=== PATIENT | male | born 1965 ===

== ENCOUNTER 2024-02-13 07:37 | Day surgery (SDC) | payer OTHER, SELFPAY ==
--- NOTE | 2024-02-13 | PATH_ITS ---
[facility] Accession Number: [id number] No. of containers..03 Tissue . 01 Material submitted: . PART A: stomach - STOMACH PART B: colon - RANDOM COLON BIOPSY PART C: colon - COLON, 60 CM, BIOPSY . 01 Clinical history: . A) R/O HP B) R/O COLITIS . 01 Diagnosis: Part A: STOMACH: Gastric mucosa with mild chronic inflammation. No Helicobacter organisms identified. No intestinal metaplasia, dysplasia, or malignancy identified. . Part B: RANDOM COLON BIOPSY: Colonic mucosa with no diagnostic alterations. No active inflammation, granulomas, dysplasia, or malignancy identified. No evidence of colitis. . Part C: COLON, 60 CM, BIOPSY: Hyperplastic polyp. [facility] 02/20/20241322 Local . 01 Electronically signed: . Giovani Powell MD, Pathologist NPI- [id number] . 01 Gross description: . A. Received in formalin with two patient identifiers and stomach, are two rojo soft tissue fragments, 0.4 x 0.2 cm in greatest dimension. Submitted entirely in A1. . B. Received in formalin with two patient identifiers and random colon, are three rojo soft tissue fragments, 0.4 to 0.3 cm in greatest dimension. Submitted entirely in B1. . C. Received in formalin with two patient identifiers and 60 biopsy, is a single rojo soft tissue fragment, 1.2 cm in greatest dimension. Submitted entirely in C1. ([id number]) /V 02/20/20241322 Local . 01 Microscopic: . Part A: STOMACH: An immunohistochemical stain was performed to evaluate for Helicobacter organisms and is negative. The control stains appropriately. * This test was developed and its performance characteristics determined by [employer]. It has not been cleared or approved by the [place]. Food and Drug Administration. The FDA has determined that such clearance or approval is not necessary. This test is used for clinical purposes. It should not be regarded as investigational or for research. . 01 Pathologist provided ICD-10: K29.50, K63.5, R19.8 . 01 CPT . 886109, 168598, 048115, [id number] Specimen Comment: A courtesy copy of this report has been sent to [phone] Performed at: [address] [id number] MD Giovani Powell MD Phone: [phone]
[2024-02-13 08:07] VITALS: BP 145/85; PULSE 93; RESP 17; TEMP 36.6; O2SAT 100
--- NOTE | 2024-02-13 08:13 | P.HP_ITS ---
History of Present Illness History of Present Illness Date Patient Seen: 02/13/24 Chief complaint: EGD & Colonoscopy Narrative: GERD with increased symptoms and intermittent loose stools with need for colorectal cancer screening [facility] Medical History (Updated 02/13/24 @ 08:04 by Mikayla Worthy RN) Normal esophagogastroduodenoscopy (EGD) Normal colonoscopy Family history of esophageal cancer Hiatal hernia Social History Smoking Status: Never smoker alcohol intake: never Meds Home Medications and Allergies Home Medications Medication Instructions Recorded Confirmed Type triamcinolone acetonide 0.1 % 60 gm EXT SEE INSTRUCTIONS ##30 08/04/16 Rx topical cream Prilosec 20 mg PO DAILY 02/13/24 02/13/24 History Allergies Allergy/AdvReac Type Severity Reaction Status Date / Time No Known Drug Allergies Allergy Verified 02/13/24 08:04 Exam Vital Signs (past 8 hours): - 02/13/24 08:07 Temperature 97.8 F Pulse Rate 93 H Respiratory Rate 17 Blood Pressure 145/85 H Pulse Oximetry 100 Oxygen Delivery Method Room Air Oxygen Delivery Method Room Air Narrative Exam Narrative: Oropharynx free of lesions Chest clear to auscultation percussion Cardiac exam reveals no S3 or murmur Assessment & Plan Assessment & Plan narrative: Intermittent loose stools need for colonoscopy and biopsy, and EGD for hiatal hernia and GERD with worsening symptoms. Risks benefits and alternatives have been explained.
--- NOTE | 2024-02-13 08:15 | PM.OP.EC ---
Operative Date/Time/Diagnoses Date of procedure: 02/13/24 Pre-op diagnosis: See indication and findings Procedure & Clinicians Study performed: EGD and colonoscopy Indications: Intermittent loose stools and worsening GE reflux and abdominal pain. Surgeon: Hilaria Franklin Procedure Notes Procedure in detail: After informed consent was obtained patient placed in left lateral decubitus position. The video upper scope was placed into the oropharynx and with the patient's help swallowed into the esophagus. The esophagus stomach and duodenum were carefully examined. On withdrawal retroflexed view the GE junction was performed. The scope was removed. The patient tolerated procedure well Patient was then turned to the colonoscope substituted. This was placed in the rectum slowly advanced cecum. On slow withdrawal mucosa was carefully examined. The scope was removed. The patient tolerated procedure well. Blood loss none Complications none Sedation mac Findings EGD 1. Normal esophagus. No clear hiatal hernia on straight or retroflexed view 2. Scattered erythema in the distal stomach biopsies taken to rule out Helicobacter 3. Normal duodenal bulb and sweep Colonoscopy 1. Normal colonic mucosa biopsies taken to rule out microscopic colitis randomly 2. 1 cm sessile polyp at 60 cm snared and removed completely with cold snare. 3. Otherwise negative colonoscopy to cecum Will be in touch regarding biopsies particularly of the polyp which will help determine follow-up interval.
[2024-02-13] MEDS: LACTATED RINGERS 1,000 ML 42 ML IV (08:16)
[2024-02-13 08:56] VITALS: BP 96/63; PULSE 70; RESP 14; TEMP 36.2; O2SAT 97
[2024-02-13 09:01] VITALS: BP 93/63; PULSE 62; RESP 16; O2SAT 97
[2024-02-13 09:06] VITALS: BP 110/75; PULSE 59; RESP 12; O2SAT 97
[2024-02-13 09:16] VITALS: BP 116/72; PULSE 64; RESP 16; O2SAT 97
== END 2024-02-13 09:32 | disposition home or self-care (01) ==
PROVIDERS: PCP Family Medicine; Referring Provider Internal Medicine Gastroenterology; Visit Provider Internal Medicine Gastroenterology
PROC: 0DJ08ZZ Inspection of Upper Intestinal Tract, Via Natural or Artificial Opening Endoscopic (ICD-10-PCS; CPT 43235; principal; 2024-02-13 08:30)
PROC: 0DJD8ZZ Inspection of Lower Intestinal Tract, Via Natural or Artificial Opening Endoscopic (ICD-10-PCS; CPT 45378; 2024-02-13 08:30)
DX: R10.9 Unspecified abdominal pain (principal); K21.9 Gastro-esophageal reflux disease without esophagitis; R19.7 Diarrhea, unspecified; K29.50 Unspecified chronic gastritis without bleeding; K63.5 Polyp of colon
CPT/HCPCS: 45385; 43239; J2704